=== PATIENT | male | born 1960 | race African-American/Black ===

== ENCOUNTER 2017-08-11 10:09 | Emergency (ER) | payer SELFPAY ==
[~2017-08-11] VITALS: Ht 177.8 cm; Wt 80.0 kg
[2017-08-11 10:11] VITALS: BP 172/112
== END 2017-08-11 13:00 | disposition home or self-care (01) ==
LOC: ER 12:40
DX: F10.129 Alcohol abuse with intoxication, unspecified (principal); F41.9 Anxiety disorder, unspecified; I10 Essential (primary) hypertension; Y90.9 Presence of alcohol in blood, level not specified
CPT/HCPCS: 99283